=== PATIENT | female | born 1995 | race Two or more races ===

== ENCOUNTER 2020-03-12 15:41 | Emergency (ER) | payer OTHER ==
[~2020-03-12] VITALS: Ht 167.6 cm; Wt 68.2 kg
[2020-03-12 15:45] VITALS: BP 123/96
[2020-03-12] MEDS ORDERED: HYDROcodone/acetaminophen 5mg/325mg tablet PO ONE (16:25)
== END 2020-03-12 17:47 | disposition home or self-care (01) ==
LOC: ER 15:43
DX: S93.401A Sprain of unspecified ligament of right ankle, initial encounter (principal); M54.41 Lumbago with sciatica, right side; G89.29 Other chronic pain; Z88.5 Allergy status to narcotic agent; W18.39XA Other fall on same level, initial encounter; Y93.89 Activity, other specified; Y92.89 Other specified places as the place of occurrence of the external cause; Y99.8 Other external cause status
CPT/HCPCS: 29515; 72100; 73610; 99284

== ENCOUNTER 2020-12-18 13:19 | Emergency (ER) | payer OTHER ==
[~2020-12-18] VITALS: Ht 165.1 cm; Wt 79.0 kg
[2020-12-18 13:37] VITALS: BP 95/66
== END 2020-12-18 15:10 | disposition home or self-care (01) ==
LOC: ER 13:20
DX: R05 Cough (principal); Z20.822 Contact with and (suspected) exposure to COVID-19; R11.0 Nausea; R51.9 Headache, unspecified; R52 Pain, unspecified; G89.29 Other chronic pain; Z88.5 Allergy status to narcotic agent
CPT/HCPCS: 87635; 99284; C9803